=== PATIENT | female | born 1985 | race Caucasian/White ===

== ENCOUNTER → 2018-06-04 | Outpatient (CLI) | payer BC ==
[~2018-06-04] MED LIST: INSU100C SQ-INSULIN; INSU100I18 SC; INSU100V35 SC; PREN1TAB60 PO
[2018-06-04 16:23] LABS: BASOPHILS # (AUTO) 0.02 x10^3/uL (0-0.1); BASOPHILS % (AUTO) 0 % (0-1); EOSINOPHILS # (AUTO) 0.06 x10^3/uL (0-0.4); EOSINOPHILS % (AUTO) 1 % (1-7); LYMPHOCYTES # (AUTO) 1.84 x10^3/uL (1-3.4); LYMPHOCYTES % (AUTO) 28 % (22-44); MD NO; MEAN CORPUSCULAR HEMOGLOBIN 32.3 pg (27.0-34.8); MEAN CORPUSCULAR HGB CONC 34.7 g/dL (32.4-35.8); MEAN CORPUSCULAR VOLUME 93.1 fL (80-100); MONOCYTES # (AUTO) 0.49 x10^3/uL (0.2-0.8); MONOCYTES % (AUTO) 7 % (2-9); NEUTROPHILS # (AUTO) 4.29 x10^3/uL (1.8-6.8); NEUTROPHILS % (AUTO) 64 % (42-75); PLATELET COUNT 220 x10^3/uL (130-400); RED BLOOD COUNT 4.42 x10^6/uL (3.82-5.3)
[2018-06-04 16:34] LABS: ALANINE AMINOTRANSFERASE 27 U/L (12-78); ALBUMIN 3.6 g/dL (3.4-5.0); ANION GAP 7 mmol/L (5-15); CALCIUM 8.2 mg/dL (8.5-10.1); CHLORIDE 105 mmol/L (98-107)
[2018-06-04 16:39] LABS: ALKALINE PHOSPHATASE 97 U/L (45-117); BILIRUBIN,TOTAL 0.3 mg/dL (0.2-1.0); TOTAL PROTEIN 6.6 g/dL (6.4-8.2)
== END | disposition home or self-care (01) ==
LOC: STAR 15:36
PROVIDERS: ATTEND Obstetrics & Gynecology
DX: Z01.818 Encounter for other preprocedural examination (principal); N93.9 Abnormal uterine and vaginal bleeding, unspecified; N94.6 Dysmenorrhea, unspecified; N94.10 Unspecified dyspareunia
CPT/HCPCS: 36415; 80053; 84703; 85025; 93005

== ENCOUNTER 2018-06-11 05:46 | Day surgery (SDC) | payer BC ==
[~2018-06-11] VITALS: Ht 165.1 cm; Wt 100.0 kg
[2018-06-11] MEDS ORDERED: LACTATED RINGERS 1,000 ML IV SCH (06:06)
[2018-06-11 06:07] VITALS: BP 134/79
[2018-06-11 06:33] LABS: HCG UR SG 1.002 (1.003-1.030)
[2018-06-11] MEDS ORDERED: ACETAMINOPHEN 500 MG TABLET ONE (06:42)
[2018-06-11] MEDS ORDERED: ONDANSETRON ODT 8 MG ONE (06:42)
[2018-06-11] MEDS ORDERED: GABAPENTIN 300 MG CAPSULE ONE (06:42)
[2018-06-11] MEDS ORDERED: INDIGO CARMINE 0.8%, 5ML ONE (06:45)
[2018-06-11] MEDS ORDERED: LIDOCAINE 1%-EPI 1:100K, 20ML ONE (06:46)
[2018-06-11] MEDS ORDERED: SILVER NITRATE STICK TP ONE (06:46)
[2018-06-11] MEDS ORDERED: MIDAZOLAM 1 MG/ML, 2ML ONE (06:49)
[2018-06-11] MEDS ORDERED: FENTANYL PF 100 MCG/2ML ONE ×3 (06:49→08:56)
[2018-06-11] MEDS ORDERED: ONDANSETRON 2MG/ML, 2ML ONE (07:00)
[2018-06-11] MEDS ORDERED: ACETAMINOPHEN 500 MG TABLET PO ONE (07:00)
[2018-06-11] MEDS ORDERED: CEFAZOLIN 1,000 MG ONE (07:00)
[2018-06-11] MEDS ORDERED: PROPOFOL 10 MG/ML, 20ML ONE (07:00)
[2018-06-11] MEDS ORDERED: GABAPENTIN 300 MG CAPSULE PO ONE (07:00)
[2018-06-11] MEDS ORDERED: METOCLOPRAMIDE 5 MG/ML, 2ML ONE (07:00)
[2018-06-11] MEDS ORDERED: NEOSTIGMINE 1 MG/ML, 10ML ONE (07:00)
[2018-06-11] MEDS ORDERED: ONDANSETRON ODT 8 MG PO ONE (07:00)
[2018-06-11] MEDS ORDERED: SUCCINYLCHOLINE 20 MG/ML, 10ML ONE (07:00)
[2018-06-11] MEDS ORDERED: GLYCOPYRROLATE 0.2MG/1ML, 5ML ONE (07:00)
[2018-06-11] MEDS ORDERED: ROCURONIUM 10 MG/ML,10ML ONE (07:00)
[2018-06-11] MEDS ORDERED: LIDOCAINE-MPF 2% ,5ML ONE (07:00)
[2018-06-11] MEDS ORDERED: LIDOCAINE 1%-EPI 1:100K, 20ML INFIL ONE (07:29)
[2018-06-11] MEDS ORDERED: HYDROmorphone 2 MG/ML, 1ML IVPush PRN (08:00)
[2018-06-11] MEDS ORDERED: OXYcodone 5 MG/5 ML ORAL.SOL UDC PO PRN (08:00)
[2018-06-11] MEDS ORDERED: PROMETHAZINE 25 MG/ML, 1ML IV PRN (08:00)
[2018-06-11] MEDS ORDERED: MEPERIDINE/PF 25MG/0.5ML IVPush PRN (08:00)
[2018-06-11] MEDS ORDERED: LORazepam 2 MG/ML, 1ML IVPush PRN (08:00)
[2018-06-11] MEDS: FENTANYL PF 100 MCG/2ML IV PRN ×2 (08:45→09:03)
[2018-06-11] MEDS ORDERED: OXYcodone 5 MG/5 ML ORAL.SOL UDC ONE (08:54)
== END 2018-06-11 11:25 | disposition home or self-care (01) ==
LOC: OUT 05:46
PROVIDERS: ATTEND Obstetrics & Gynecology
DX: N72 Inflammatory disease of cervix uteri (principal); N93.9 Abnormal uterine and vaginal bleeding, unspecified; N94.6 Dysmenorrhea, unspecified; E11.9 Type 2 diabetes mellitus without complications; Z79.84 Long term (current) use of oral hypoglycemic drugs
CPT/HCPCS: 58552; 81025; 82962; 88307; J0330; J0690; J2250; J2405; J2704; J2710; J2765; J3010; J3490; J7120; Q0162